=== PATIENT | male | born 2005 | race Caucasian/White ===

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

== ENCOUNTER 2023-09-11 17:14 | Emergency (ER) | payer OTHER, SELFPAY ==
[2023-09-11 17:41] VITALS: BP 143/84; PULSE 90; RESP 16; TEMP 36.8; O2SAT 100; BMI 29.3
[2023-09-11 18:22] LABS: IDNOW Serial# 08D9AD1C; Strep A Nucleic Acid Negative (Negative)
[2023-09-11 18:47] LABS: Influenza A PCR NEGATIVE (Negative); Influenza B PCR NEGATIVE (Negative); Resp Syncy Virus RNA Qual PCR NEGATIVE (Negative); SARS COV2 PCR INHOUSE NEGATIVE (Negative)
[2023-09-11 19:19] VITALS: BP 133/86; PULSE 78; TEMP 36.7; O2SAT 99
--- NOTE | 2023-09-11 19:32 | ED.GENADULT ---
HPI - General Adult General Chief complaint: Eye Problems Stated complaint: sore throat eyes irritated Time Seen by Provider: 09/11/23 19:20 Source: patient and RN notes reviewed Mode of arrival: ambulatory Limitations: no limitations History of Present Illness HPI narrative: This is a 18-year-old male, with no known medical problems, presenting to the emergency department with complaints of bilateral eye redness, drainage, sore throat, and cough times 5 days. Patient states that his mom is sick at home with similar symptoms, and also has been sick with strep throat. Patient states that over the course of the last 5 days he has had increased eye drainage, redness, burning sensation. He also has had a sore throat and a productive cough with yellow/greenish sputum. He denies any fevers, chills, chest pain, shortness of breath, abdominal pain, nausea, vomiting or diarrhea. Denies taking any medications at home to treat his current symptoms. He does have a history of seasonal allergies, he has not taken any seasonal allergy medications as of yet. No other complaints or concerns at this time. MD complaint: cough, sore throat Onset (ago): day(s) Radiation: non-radiation Severity: moderate Quality: aching Pain Consistency: constant Relieving factors: none Exacerbating factors: none Associated symptoms: denies other symptoms Treatments prior to arrival: none Related Data Home Medications ?Medication ?Instructions ?Recorded ?Confirmed aripiprazole 5 mg tablet 1 tab PO DAILY 08/27/20 08/27/20 Previous Rx's ?Medication ?Instructions ?Recorded meloxicam 15 mg tablet 15 mg PO DAILY #14 tabs 05/23/22 erythromycin 5 mg/gram (0.5 %) eye 1 appl ophthalmic (eye) QID 7 days 09/11/23 ointment #3.5 grams Allergies Allergy/AdvReac Type Severity Reaction Status Date / Time haloperidol [From Haldol] AdvReac Involuntary Verified 09/11/23 17:46 Spasms Review of Systems Review of Systems: Yes all other systems are reviewed and are negative Constitutional: Constitutional: Reports as per [facility] Social History Social History Alcohol intake: never Patient Tobacco Use Status: Never used Tobacco Advance Directives: No Advance Directives Information Provided: No Physical Exam ED Vital Signs: Vital Signs - 24 hr 09/11/23 17:41 09/11/23 19:19 Temperature 98.2 F 98.1 F Pulse Rate 90 78 Respiratory Rate 16 Blood Pressure 143/84 H 133/86 Pulse Oximetry 100 99 Oxygen Delivery Method Room Air Room Air BMI result Body Mass Index 29.3 Const General: cooperative, comfortable and no acute distress Orientation/consciousness: patient oriented x3 Limitations: no limitations HENMT Head: Yes normal to inspection, Yes normocephalic and Yes atraumatic Ears: hearing grossly normal bilaterally and TM's normal bilaterally General nose exam: Normal external nose present Face and sinus: Yes normal facial exam Mouth: Normal oral and palatal mucosa present, oropharynx normal and moist mucous membranes Throat: Yes posterior oropharynx normal Eyes General: appearance normal, both eyes and all related structures Eyelids: Yes eyelids normal Conjunctivae: conjunctivae normal Sclerae: sclerae normal Pupils: Equal, round and reactive pupils present EOM: EOMs intact bilaterally Neck Neck: Yes normal visual inspection, Yes full ROM and Yes no lymphadenopathy Lymphatic: no lymphadenopathy noted Chest Chest palpation & inspection: normal inspection of the chest Resp Effort & Inspection: normal respiratory effort and able to speak in complete sentences Auscultation: clear to auscultation bilaterally, no crackles, no rales, no rhonchi and no wheezes Cardio Rate: regular rate Rhythm: regular rhythm Heart sounds: S1 normal heart sound present and S2 normal heart sound present GI Inspection: Yes normal to inspection Skin General skin exam: no rashes or lesions noted Trauma: no lacerations or abrasions Wounds: no wounds Neuro General: patient oriented x3 and moves all extremities Cranial nerves: Yes Equal, round and reactive pupils present Extrem General: Yes normal to inspection Right upper extremity: normal to inspection Left upper extremity: normal to inspection Right lower extremity: normal to inspection Left lower extremity: normal to inspection Medical Decision Making Medical Decision Making MDM Narrative: This is a 18-year-old male presenting to the emergency department for evaluation of bilateral eye redness, irritation, drainage x 5 days. Also complaining of sore throat and cough. Bilateral conjunctiva is injected, PERRLA, EOMI. On arrival, vital signs within normal limits. Differential diagnoses include URI, allergic rhinitis, conjunctivitis, COVID, flu, RSV, strep throat. Symptoms likely viral however also considered bacterial conjunctivitis, given symptoms have been consistent for 5 days and have been worsening, will treat with erythromycin for the next 7 days, given return precautions. Patient understands and agrees with plan. Patient stable for discharge. Plan: Viral swabs Differential Diagnosis Differential Diagnoses: The differential diagnosis associated with the presentation includes See above Admission/Observation Consideration of admission/observation: Escalation of care including admission/observation considered Escalation of care including admission/observation considered however given workup today not warranted at this time. Lab Data MDM Lab Attestation statement: I reviewed the patient's lab results. Negative swabs Labs: Lab Results 09/11/23 Range/Units 18:01 Influenza Type A (PCR) NEGATIVE (Negative) Influenza Type B (PCR) NEGATIVE (Negative) RSV RNA Qual (PCR) NEGATIVE (Negative) SARS-CoV-2 RNA (RT-PCR) NEGATIVE (Negative) S. pyogenes GrpA ELLEN Negative (Negative) Discharge Plan Discharge Clinical Impression: Acute viral conjunctivitis, Acute viral syndrome Patient Disposition: Home, Self-Care Instructions: Viral Syndrome (ED), Conjunctivitis (ED) Additional Instructions: You were seen in the emergency department due to right eye redness and itchiness, and sore throat. You tested negative for COVID, flu, RSV and strep throat. Your symptoms are likely due to a virus however I am treating you with a topical antibiotic to be used in your eyes to treat for any sort of bacterial pinkeye or conjunctivitis. Your symptoms may be attributed to a virus and or seasonal allergies. Please drink plenty of fluids get plenty of rest. You may want to start an allergy medication to help treat your symptoms. If any new or worsening symptoms occur including but not limited to worsening eye pain, changes in vision, chest pain, shortness of breath, please return for re-evaluation. Prescriptions: New erythromycin 5 mg/gram (0.5 %) ointment 1 appl ophthalmic (eye) QID 7 Days Qty: 3.5 0RF No Action aripiprazole 5 mg tablet 1 tab PO DAILY Rx Instructions: PT takes medications at night. meloxicam 15 mg tablet 15 mg PO DAILY Qty: 14 0RF Print Language: Luxembourgish
[2023-09-11 19:41] VITALS: BP 134/88; PULSE 76; RESP 20; TEMP 36.6; O2SAT 99
== END 2023-09-11 19:43 | disposition home or self-care (01) ==
PROVIDERS: Emergency Provider Emergency Medicine
DX: H10.33 Unspecified acute conjunctivitis, bilateral (principal); B34.9 Viral infection, unspecified; R05.9 Cough, unspecified; J02.9 Acute pharyngitis, unspecified; Z11.52 Encounter for screening for COVID-19; Z20.822 Contact with and (suspected) exposure to COVID-19
CPT/HCPCS: 0241U; 87651; 99283; 99284